=== PATIENT | female | born 1960 | race Two or more races ===

== ENCOUNTER 2019-08-23 12:14 | Emergency (ER) | payer MEDICAID ==
[~2019-08-23] VITALS: Ht 162.6 cm; Wt 80.0 kg
[2019-08-23] MEDS ORDERED: HYDROCODONE/ACETAMINOPHEN 5/325MG TABLET PO STA (12:48)
[2019-08-23] MEDS ORDERED: SILVER SULFADIAZINE 1% CREAM 25GM TOP ONE (13:00)
[2019-08-23] MEDS ORDERED: MORPHINE SULFATE 4 MG/ML CPJ (NOT FOR IM USE) IV ONE (13:00)
[2019-08-23] MEDS ORDERED: TETANUS, DIPHTHERIA, PERTUSSIS VAC/PF 0.5ML (>7YR OLD) IM ONE (13:15)
[2019-08-23] MEDS ORDERED: CEPHALEXIN 250MG CAPSULE PO ONE (13:15)
[2019-08-23] MEDS ORDERED: FENTANYL CITRATE/PF 50MCG/ML 2ML VIAL IV ONE (14:00)
[2019-08-23 14:23] LABS: BASOPHILS % 0.3 % (0.0-2.0); EOSINOPHILS % 0.3 % (0.0-5.0); HEMATOCRIT. 36.9 % (36.0-48.0); HEMOGLOBIN. 12.3 g/dL (12.0-16.0); LYMPHOCYTES % 7.5 % (20.0-50.0); MEAN CORPUSCULAR HEMOGLOBIN 29.7 pg (28.0-32.0); MEAN CORPUSCULAR VOLUME 88.9 fL (81.0-99.0); MEAN PLATELET VOLUME 8.3 fl (7.4-10.4); MONOCYTES % 4.5 % (2.0-8.0); NEUTROPHILS % 87.4 % (40.0-76.0); PLATELET 318 x1000/uL (130-400); RED BLOOD CELL COUNT 4.15 mill/uL (4.2-5.4); RED CELL DISTRIBUTION WIDTH 13.3 % (11.6-14.6)
[2019-08-23 14:29] LABS: CHLORIDE 106 mEq/L (98-107)
[2019-08-23 15:00] VITALS: BP 148/71
== END 2019-08-23 15:02 | disposition home or self-care (01) ==
LOC: ER 12:14
DX: T22.121A Burn of first degree of right elbow, initial encounter (principal); T21.24XA Burn of second degree of lower back, initial encounter; T79.9XXA Unspecified early complication of trauma, initial encounter; T31.0 Burns involving less than 10% of body surface; I10 Essential (primary) hypertension
CPT/HCPCS: 16020; 36415; 80053; 82962; 85025; 90471; 90715; 96374; 96375; 99285; J2270; J3010